=== PATIENT | female | born 1945 | race Caucasian/White ===

== ENCOUNTER 2019-02-17 09:27 | Inpatient (IN) | payer MEDICARE, BC ==
[2019-02-17 09:52] LABS: #Eosinphils 0.1 thou/uL (0.0-0.7); #Lymphocytes 1.4 thou/uL (1.20-3.40); #Neutrophils 10.5 thou/uL (1.40-6.50); %Basophils 0.1 % (0.0-1.0); %Eosinophils 0.6 % (0.0-10.0); %Monocytes 7.6 % (0.0-10.0); %Neutrophils 80.7 % (42.0-75.0); Mean Corpuscular HGB CONC 32.8 g/dL (32.0-36.0); Mean Corpuscular Hemoglobin 32.9 pg (27.0-31.0); Platelet Count 170 thou/uL (130-400); RBC Distribution Width 11.7 % (11.5-14.5); Red Blood Cell (RBC) Count 4.55 mill/uL (4.20-5.40)
[2019-02-17] MEDS ORDERED: Acetaminophen 650 MG Suppository ONE (09:57)
[2019-02-17 10:38] LABS: ALT (SGPT) 36 U/L (8-55); AST (SGOT) 38 U/L (5-34); Albumin 3.6 g/dL (3.4-4.8); Alkaline Phosphatase 66 U/L (40-110); Anion Gap 16 mmol/L (10-20); BUN (Urea Nitrogen) 18 mg/dL (9.8-20.1); Bilirubin, Total 0.6 mg/dL (0.2-1.2); Calc. Creatinine Clearance 0 mL/min (70-130); Calcium 9.4 mg/dL (7.8-10.44); Carbon Dioxide 25 mmol/L (23-31); Chloride 102 mmol/L (98-107); Estimated GFR-MDRD 75; Globulin 3.5 g/dL (2.4-3.5); Glucose 101 mg/dL (83-110); Potassium 4.4 mmol/L (3.5-5.1); Protein, Total 7.1 g/dL (6.0-8.3); Sodium 139 mmol/L (136-145)
--- NOTE | 2019-02-17 10:51 | RAD ---
Portable frontal chest radiograph: 02/17/2019 COMPARISON: 01/17/2016 HISTORY: Altered mental status, sepsis FINDINGS: Shallow inspiration limits detailed assessment. Hazy increased density noted in the right l chuy base which may represent volume loss or mild infiltrate. There is similar mild increased density in the left cardiophrenic angle. No lobar consolidation or alveolar edema. Postoperative clip s are seen in the right upper quadrant. IMPRESSION: Mild increased density in both lung bases may signify volume loss or mild infiltrate. No focal consolidation or alveolar edema.
[2019-02-17 11:03] LABS: Bacteria/HPF 4+ HPF (None Seen); Bilirubin Negative (Negative); Blood, Urine 1+ (Negative); Clarity Extra Turbid (Clear); Glucose, Urine (Dipstick) Normal (Negative); Leukocyte 500 Leu/uL (Negative); Nitrite 1+ (Negative); Protein, Urine (Dipstick) 20 mg/dL (Neg-Trace); Urobilinogen Normal mg/dL (Less than 2); WBC/HPF Greater than 50 HPF (0-3)
[2019-02-17] MEDS ORDERED: cefTRIAXone\\ROCEPHIN 1 GM VIAL ONE (11:55)
[2019-02-17 13:37] LABS: Lactic Acid 3.5 mmol/L (0.5-2.2)
[2019-02-17] MEDS ORDERED: Acetaminophen 325 MG TAB PO PRN (15:18)
[2019-02-17] MEDS ORDERED: Sodium Chloride 0.9% 1,000 ML IV SCH (15:18)
[2019-02-17] MEDS ORDERED: hydrALAZINE 20 MG/ML VIAL SLOW IVP PRN (18:23)
[2019-02-17] MEDS ORDERED: traMADol HCl 50 MG TAB PO PRN (18:23)
[2019-02-17] MEDS ORDERED: Lisinopril 10 MG TAB PO PRN (18:23)
[2019-02-17] MEDS ORDERED: Ondansetron ODT 4 MG TAB PO PRN (18:23)
[2019-02-17] MEDS ORDERED: Polyethylene Glycol OPTH DROP 15 ML BOT EA EYE PRN (18:23)
[2019-02-17] MEDS: Sodium Chloride 0.9% 1,000 ML IV SCH (19:00)
--- NOTE | 2019-02-17 19:32 | HP ---
PRIMARY CARE PROVIDER: Dr. Chris Bowers. CHIEF COMPLAINT: Altered mental status. HISTORY OF PRESENT ILLNESS: This is a 73-year-old female, who presents to [facility] Emergency Department from a local long term unit [facility] where patient is a current resident. group home staff noted patient with decreased alertness and altered mental status concerning the staff to notify EMS personnel. The patient with a previous history of altered mentation in the context of urinary tract infection as the patient has a neurogenic bladder. EMS evaluated the patient, who was noted to be tachycardiac with a fever of 101 degrees Fahrenheit. The patient does not have a chronic urinary catheter placed, but longterm staff states the patient is normally more alert and interactive. The patient with significant history of dementia as well as paraplegia and essentially bedbound after history of metastatic breast cancer and in addition to spinal cord cancer. The history is obtained after review of the electronic medical record in conjunction with discussions with the emergency room attending and review of pertinent electronic medical records in [facility]. The patient is unable to verbalize any coherent history. In the emergency room, the patient underwent general evaluation with urinalysis concerning for infectious process. The patient was also noted with lactic acidosis and elevated white blood cell count and heart rate concerning for sepsis. The patient received intravenous normal saline x2 liters in addition to Rocephin 1 g IV piggyback and Tylenol 650 mg. The patient was transferred to the medical floor for further evaluation. PAST MEDICAL HISTORY: 1. Metastatic breast cancer, status post left mastectomy. 2. Spinal cord cancer x2. 3. Hypothyroidism. 4. Bedbound status. 5. Hyperlipidemia. 6. Paraplegia. 7. Gastroesophageal reflux disease. 8. Recurrent urinary tract infections. PAST SURGICAL HISTORY: 1. Status post cholecystectomy. 2. Status post hysterectomy. 3. Status post lumbar disk repair in 2001 and 2007. 4. Status post left mastectomy. CURRENT MEDICATIONS: 1. Enteric-coated aspirin 81 mg p.o. daily. 2. Lipitor 40 mg p.o. daily. 3. Dulcolax 10 mg per rectum daily. 4. Calcium carbonate 500 mg p.o. daily. 5. Vitamin D3 of 1000 units p.o. daily. 6. Benadryl 25 mg p.o. q.6 hours p.r.n. 7. Famotidine 20 mg p.o. q.h.s. 8. Gabapentin 100 mg p.o. b.i.d. and 300 mg p.o. q.h.s. 9. Levothyroxine 88 mcg p.o. daily. 10. Lisinopril 10 mg p.o. daily. 11. Magnesium oxide 400 mg p.o. b.i.d. 12. [place]-3 fatty acids 2000 mg p.o. b.i.d. 13. Tramadol 50 mg p.o. b.i.d. p.r.n. ALLERGIES: NO KNOWN DRUG ALLERGIES. FAMILY HISTORY: Father with throat cancer. SOCIAL HISTORY: The patient resides at [facility] as a longterm resident. No current alcohol, tobacco, or illicit drug use. Nonambulatory status. Medical power of civil rights attorney is the patient's sister, Indira Mclean. REVIEW OF SYSTEMS: Unobtainable due to patient's altered mentation. PHYSICAL EXAMINATION: VITAL SIGNS: On evaluation in the emergency room; blood pressure 138/78, pulse 108, respiratory rate 14, temperature 101 degrees Fahrenheit, O2 saturation 98% on room air. GENERAL APPEARANCE: This is a 73-year-old female, ill appearing, minimally responsive, but nods to questions, in mild distress. HEENT: Pupils are equal, round, reactive to light and accommodation. Extraocular muscles are intact. No scleral icterus. No conjunctival injection. Nares patent. OP is clear. Oral mucosa dry. NECK: Supple. No cervical adenopathy. No thyromegaly. No carotid bruits. No JVD appreciated. Cervical spine with full active and passive range of motion. No meningeal signs noted. CHEST: Lungs are clear to auscultation bilaterally. CARDIOVASCULAR: S1 and S2 with tachycardia. ABDOMEN: Rounded, soft with mild tenderness to palpation in the suprapubic region. No palpable mass. No rebound or guarding appreciated. EXTREMITIES: Warm and dry with fair turgor. No clubbing, cyanosis, or asymmetric edema appreciated. Pulses palpable distally at the dorsalis pedis, posterior tibial, and popliteal arteries bilaterally. Capillary refill less than 2 seconds. NEUROLOGIC: Nonverbal. Nods to questions. Tracks with her eyes. Bedbound status. PERTINENT LABORATORY AND X-RAY FINDINGS: Basic metabolic profile within normal limits. Lactic acid level ranged between 3.1 to 3.5. LFTs within normal limits. CBC showed a white blood cell count of 13.0, hemoglobin 15, hematocrit 46, MCV 100, platelet count 170 with 81% neutrophils. Urinalysis showed positive nitrite and leukocyte esterase with 11 to 20 rbc's and greater than 50 to [id number] wbc's per high-power field, 4+ bacteria. Influenza A and B antigen dated 02/17/2019, negative. Portable chest x-ray dated 02/17/2019, showed bibasilar atelectasis. EKG dated 02/17/2019, by my interpretation shows sinus tachycardia with heart rates in the low 100s. Normal R-wave progression noted in the precordial leads. Left axis deviation noted. ASSESSMENT AND PLAN: 1. Sepsis secondary to urinary tract infection. Admit to the medical floor. Continue intravenous normal saline at 100 mL/h. Levaquin 750 mg IV q.24 hours. Await final urine culture results. 2. Acute metabolic encephalopathy secondary to #1. We will continue treatment as outlined in #1 and monitor clinical response. 3. Lactic acidosis secondary to #1. We will continue treatment as outlined previously. Serial blood pressure monitoring. Continue IV antibiotics. 4. Paraplegia. Continue turning protocol to avoid decubitus ulceration. Baseline status. 5. Prophylaxis. SCDs while in bed. Pepcid 20 mg p.o. b.i.d. 6. Code status. Do not attempt resuscitation. Confirmed with family and [id number] DNR. Surrogate medical decision maker is patient's sister. Job ID: [id number]
[2019-02-17] MEDS: Gabapentin 300 MG CAP PO SCH (20:33)
[2019-02-17] MEDS: Magnesium Oxide 400 MG TAB PO SCH (20:33)
[2019-02-17] MEDS: traMADol HCl 50 MG TAB PO SCH (20:34)
[2019-02-17] MEDS: Famotidine 20 MG TAB PO SCH (21:00)
[2019-02-17] MEDS ORDERED: cefTRIAXone\\ROCEPHIN 1 GM in Sodium Chloride 0.9% 100 ML IVPB SCH (23:10)
[2019-02-18] MEDS: Sodium Chloride 0.9% 1,000 ML IV SCH ×2 (05:36→14:23)
[2019-02-18] MEDS: Levothyroxine Sodium 88 MCG TAB PO SCH (05:36)
[2019-02-18 06:44] LABS: Anion Gap 11 mmol/L (10-20); BUN (Urea Nitrogen) 15 mg/dL (9.8-20.1); Calc. Creatinine Clearance 0 mL/min (70-130); Carbon Dioxide 22 mmol/L (23-31); Chloride 105 mmol/L (98-107); Estimated GFR-MDRD Greater than 90; Glucose 98 mg/dL (83-110); Potassium 4.1 mmol/L (3.5-5.1); Sodium 134 mmol/L (136-145)
[2019-02-18 06:46] LABS: Band 1 % (5-11); Hemoglobin 13.3 g/dL (12.0-16.0); Lymphocytes 10 % (21-51); MDiff Complete? YES; Mean Corpuscular HGB CONC 34.6 g/dL (32.0-36.0); Mean Corpuscular Hemoglobin 34.3 pg (27.0-31.0); Mean Corpuscular Volume 99.2 fL (78.0-98.0); Mean Platelet Volume 9.2 fL (7.4-10.4); Monocytes 5 % (0-10); Neutrophil 84 % (42-75); Platelet Count 80 thou/uL (130-400); Platelet Morphology Comment Appears Adequate; RBC Distribution Width 11.6 % (11.5-14.5); RBC Morphology Normal; Red Blood Cell (RBC) Count 3.87 mill/uL (4.20-5.40); White Blood Cell (WBC) Count 12.9 thou/uL (4.8-10.8)
[2019-02-18] MEDS ORDERED: Gabapentin 100 MG CAP PO SCH (07:30)
[2019-02-18] MEDS: Magnesium Oxide 400 MG TAB PO SCH ×2 (08:30→20:32)
[2019-02-18] MEDS: Famotidine 20 MG TAB PO SCH ×2 (08:30→20:31)
[2019-02-18] MEDS: Aspirin 81 mg Enteric Coated Tablet PO SCH (08:30)
[2019-02-18] MEDS: Calcium Carbonate 500 MG ChewTAB PO SCH (08:31)
[2019-02-18] MEDS: Atorvastatin Calcium 40 MG TAB PO SCH (08:31)
[2019-02-18] MEDS: traMADol HCl 50 MG TAB PO SCH ×2 (08:31→20:32)
[2019-02-18] MEDS: Simethicone Chewable 80 MG TAB PO SCH (08:32)
[2019-02-18] MEDS: Bisacodyl 10 MG SUPP PR SCH (08:34)
--- NOTE | 2019-02-18 13:27 | PDOC.HOSPP ---
- Subjective Encounter Date: 02/18/19 Encounter Time: 13:00 Subjective: Drowsy, Awake able.. - Objective Vital Signs & Weight: Vital Signs (12 hours) Temp Pulse Resp BP Pulse Ox 02/18/19 11:51 97.8 F 88 20 102/64 94 L 02/18/19 08:00 97 02/18/19 07:51 98.4 F 94 20 116/75 97 02/18/19 05:25 98.4 F 99 16 115/78 95 I&O: 02/17/19 02/18/19 02/19/19 06:59 06:59 06:59 Intake Total 1350 Output Total 475 Balance 875 Result Diagrams: 02/18/19 06:24 02/18/19 06:23 Hospitalist ROS - Medication Medications: Active Medications Generic Name Dose Route Start Last Admin Trade Name Freq PRN Reason Stop Dose Admin Aspirin 81 mg 02/18/19 09:00 02/18/19 08:30 Ecotrin PO 81 mg DAILY ROBERT Administration Atorvastatin Calcium 40 mg 02/18/19 09:00 02/18/19 08:31 Lipitor PO 40 mg DAILY ROBERT Administration Bisacodyl 10 mg 02/18/19 09:00 02/18/19 08:34 Dulcolax [place] 10 mg DAILY ROBERT Administration Calcium Carbonate 500 mg 02/18/19 09:00 02/18/19 08:31 Tums PO 500 mg DAILY ROBERT Administration Cholecalciferol 1,000 units 02/18/19 06:00 02/18/19 05:36 Vitamin D3 PO 1,000 units 0600 ROBERT Administration Famotidine 20 mg 02/17/19 21:00 02/18/19 08:30 Pepcid PO 20 mg BID ROBERT Administration Gabapentin 100 mg 02/18/19 07:30 02/18/19 08:30 Neurontin PO 100 mg BID-AC ROBERT Administration Gabapentin 300 mg 02/17/19 21:00 02/17/19 20:33 Neurontin PO 300 mg HS ROBERT Administration Sodium Chloride 1,000 mls @ 100 mls/hr 02/17/19 18:30 02/18/19 05:36 Normal Saline 0.9% IV 1,000 mls .Q10H ROBERT Administration Levofloxacin 750 mg/ Device 150 mls @ 100 mls/hr 02/17/19 20:00 02/17/19 20: 28 IVPB 150 mls Q24HR ROBERT Administration Levothyroxine Sodium 88 mcg 02/18/19 06:00 02/18/19 05:36 Synthroid PO 88 mcg 0600 ROBERT Administration Magnesium Oxide 400 mg 02/17/19 21:00 02/18/19 08:30 Magnesium Oxide PO 400 mg BID ROBERT Administration Simethicone 80 mg 02/18/19 09:00 02/18/19 08:32 Mylicon Chewable PO 80 mg DAILY ROBERT Administration Sodium Chloride 10 ml 02/17/19 21:00 02/18/19 08:33 Flush - Normal Saline IVF 10 ml Q12HR ROBERT Administration Tramadol HCl 50 mg 02/17/19 21:00 02/18/19 08:31 Ultram PO 50 mg BID ROBERT Administration - Exam Eye: anicteric sclera Neck: no JVD Heart: RRR Respiratory: CTAB Gastrointestinal: soft Extremities: no edema Neurological - other findings: +paraplegia.. Hosp A/P (1) Sepsis Code(s): A41.9 - SEPSIS, UNSPECIFIED ORGANISM Status: Acute (2) Lactic acidosis Code(s): E87.2 - ACIDOSIS Status: Acute (3) Lactic acidosis Code(s): E87.2 - ACIDOSIS Status: Acute (4) Altered mental status Code(s): R41.82 - ALTERED MENTAL STATUS, UNSPECIFIED Status: Acute (5) Altered mental status Code(s): R41.82 - ALTERED MENTAL STATUS, UNSPECIFIED Status: Acute (6) Breast cancer Status: Acute (7) Spinal stenosis of lumbar region Code(s): M48.06 - SPINAL STENOSIS, LUMBAR REGION * DO NOT USE * Status: Chronic (8) UTI (urinary tract infection) Status: Chronic Qualifiers: Urinary tract infection type: acute cystitis - Plan f/u BxC Continue antibiotics, f/u lactic acid. Hold neurontin.
[2019-02-18] MEDS: Ondansetron PF 4 MG/2 ML Vial IVP PRN (15:40)
[2019-02-18 16:12] VITALS: BMI 23.7
[2019-02-18] MEDS: Gabapentin 300 MG CAP PO SCH (20:32)
[2019-02-18] MEDS: Acetaminophen 500 MG TAB PO PRN (21:02)
[2019-02-19] MEDS: Sodium Chloride 0.9% 1,000 ML IV SCH ×3 (02:00→14:35)
[2019-02-19] MEDS: Levothyroxine Sodium 88 MCG TAB PO SCH (05:22)
[2019-02-19] MEDS: Ondansetron PF 4 MG/2 ML Vial IVP PRN (05:24)
[2019-02-19] MEDS: Famotidine 20 MG TAB PO SCH ×2 (08:19→21:03)
[2019-02-19] MEDS: Calcium Carbonate 500 MG ChewTAB PO SCH (08:19)
[2019-02-19] MEDS: traMADol HCl 50 MG TAB PO SCH (08:21)
[2019-02-19] MEDS: Aspirin 81 mg Enteric Coated Tablet PO SCH (08:22)
[2019-02-19] MEDS: Atorvastatin Calcium 40 MG TAB PO SCH (08:22)
[2019-02-19] MEDS: Simethicone Chewable 80 MG TAB PO SCH (08:23)
[2019-02-19] MEDS: Magnesium Oxide 400 MG TAB PO SCH ×2 (08:23→21:03)
[2019-02-19] MEDS: Aspirin Chewable 81 MG TAB PO SCH (08:26)
--- NOTE | 2019-02-19 12:20 | PDOC.HOSPP ---
- Subjective Encounter Date: 02/19/19 Encounter Time: 11:00 Subjective: Somnolent, awake able.. - Objective Vital Signs & Weight: Vital Signs (12 hours) Temp Pulse Resp BP Pulse Ox 02/19/19 07:40 97.5 F L 78 16 138/83 96 Weight Weight 134 lb 1.6 oz I&O: 02/18/19 02/19/19 02/20/19 06:59 06:59 06:59 Intake Total 1350 1150 Output Total 093 700 Balance 875 450 Result Diagrams: 02/18/19 06:24 02/18/19 06:23 Hospitalist ROS - Medication Medications: Active Medications Generic Name Dose Route Start Last Admin Trade Name Freq PRN Reason Stop Dose Admin Acetaminophen 1,000 mg 02/17/19 18:23 02/18/19 21:02 Tylenol PO 1,000 mg Q6H PRN Administration Mild Pain (1-3) Aspirin 81 mg 02/19/19 09:00 02/19/19 08:26 Aspirin Chewable PO 81 mg DAILY ROBERT Administration Atorvastatin Calcium 40 mg 02/18/19 09:00 02/19/19 08:22 Lipitor PO 40 mg DAILY ROBERT Administration Bisacodyl 10 mg 02/18/19 09:00 02/18/19 08:34 Dulcolax [place] 10 mg DAILY ROBERT Administration Calcium Carbonate 500 mg 02/18/19 09:00 02/19/19 08:19 Tums PO 500 mg DAILY ROBERT Administration Cholecalciferol 1,000 units 02/18/19 06:00 02/19/19 05:22 Vitamin D3 PO 1,000 units 0600 ROBERT Administration Famotidine 20 mg 02/17/19 21:00 02/19/19 08:19 Pepcid PO 20 mg BID ROBERT Administration Gabapentin 300 mg 02/17/19 21:00 02/18/19 20:32 Neurontin PO 300 mg HS ROBERT Administration Sodium Chloride 1,000 mls @ 100 mls/hr 02/17/19 18:30 02/19/19 11:59 Normal Saline 0.9% IV Not Given .Q10H ROBERT Levofloxacin 750 mg/ Device 150 mls @ 100 mls/hr 02/17/19 20:00 02/18/19 20: 30 IVPB 150 mls Q24HR ROBERT Administration Levothyroxine Sodium 88 mcg 02/18/19 06:00 02/19/19 05:22 Synthroid PO 88 mcg 0600 ROBERT Administration Magnesium Oxide 400 mg 02/17/19 21:00 02/19/19 08:23 Magnesium Oxide PO 400 mg BID ROBERT Administration Ondansetron HCl 4 mg 02/17/19 18:23 02/19/19 05:24 Zofran IVP 4 mg Q6H PRN Administration Nausea/Vomiting Simethicone 80 mg 02/18/19 09:00 02/19/19 08:23 Mylicon Chewable PO 80 mg DAILY ROBERT Administration Sodium Chloride 10 ml 02/17/19 21:00 02/19/19 09:52 Flush - Normal Saline IVF Not Given Q12HR ROBERT Tramadol HCl 50 mg 02/17/19 21:00 02/19/19 08:21 Ultram PO 50 mg BID ROBERT Administration - Exam General Appearance: NAD Neck: no JVD Heart: RRR Respiratory: CTAB Gastrointestinal: soft Extremities: no edema Neurological - other findings: +Paraplegia.. Psychiatric: somnolent Hosp A/P (1) Sepsis Code(s): A41.9 - SEPSIS, UNSPECIFIED ORGANISM Status: Acute (2) Lactic acidosis Code(s): E87.2 - ACIDOSIS Status: Resolved (3) Lactic acidosis Code(s): E87.2 - ACIDOSIS Status: Resolved (4) Altered mental status Code(s): R41.82 - ALTERED MENTAL STATUS, UNSPECIFIED Status: Acute (5) Altered mental status Code(s): R41.82 - ALTERED MENTAL STATUS, UNSPECIFIED Status: Acute (6) Breast cancer Status: Acute (7) Spinal stenosis of lumbar region Code(s): M48.06 - SPINAL STENOSIS, LUMBAR REGION * DO NOT USE * Status: Chronic (8) UTI (urinary tract infection) Status: Chronic Qualifiers: Urinary tract infection type: acute cystitis - Plan Urine culture grows K.Pneumoniae Continue antibiotics, Try to hold toradol if feasable in view of somnolence.....
[2019-02-19] MEDS: Bisacodyl 10 MG SUPP PR SCH (17:08)
[2019-02-19] MEDS: Gabapentin 300 MG CAP PO SCH (21:03)
[2019-02-19] MEDS: Acetaminophen 500 MG TAB PO PRN (21:03)
[2019-02-20] MEDS: Ondansetron PF 4 MG/2 ML Vial IVP PRN (01:13)
[2019-02-20] MEDS: Sodium Chloride 0.9% 1,000 ML IV SCH ×2 (01:14→13:21)
[2019-02-20] MEDS ORDERED: Sodium Chloride 0.65% Nasal 44 ML BOT EA NARE PRN (01:23)
[2019-02-20] MEDS: Levothyroxine Sodium 88 MCG TAB PO SCH (05:01)
[2019-02-20] MEDS: Calcium Carbonate 500 MG ChewTAB PO SCH (09:52)
[2019-02-20] MEDS: Famotidine 20 MG TAB PO SCH ×2 (09:52→19:47)
[2019-02-20] MEDS: Aspirin Chewable 81 MG TAB PO SCH (09:53)
[2019-02-20] MEDS: Simethicone Chewable 80 MG TAB PO SCH (09:53)
[2019-02-20] MEDS: Atorvastatin Calcium 40 MG TAB PO SCH (09:53)
[2019-02-20] MEDS: Bisacodyl 10 MG SUPP PR SCH (10:04)
--- NOTE | 2019-02-20 10:52 | PDOC.HOSPP ---
- Subjective Encounter Date: 02/20/19 Encounter Time: 10:30 Subjective: NO specific complaint.. Much more alert today. - Objective Vital Signs & Weight: Vital Signs (12 hours) Temp Pulse Resp BP Pulse Ox 02/20/19 08:00 97.7 F 84 20 139/80 98 Weight Weight 134 lb 1.6 oz I&O: 02/19/19 02/20/19 02/21/19 06:59 06:59 06:59 Intake Total 1150 1300 Output Total 700 2200 Balance 450 -900 Result Diagrams: 02/18/19 06:24 02/18/19 06:23 Hospitalist ROS - Medication Medications: Active Medications Generic Name Dose Route Start Last Admin Trade Name Freq PRN Reason Stop Dose Admin Acetaminophen 1,000 mg 02/17/19 18:23 02/19/19 21:03 Tylenol PO 1,000 mg Q6H PRN Administration Mild Pain (1-3) Aspirin 81 mg 02/19/19 09:00 02/20/19 09:53 Aspirin Chewable PO 81 mg DAILY ROBERT Administration Atorvastatin Calcium 40 mg 02/18/19 09:00 02/20/19 09:53 Lipitor PO 40 mg DAILY ROBERT Administration Bisacodyl 10 mg 02/18/19 09:00 02/20/19 10:04 Dulcolax [place] Not Given DAILY ROBERT Calcium Carbonate 500 mg 02/18/19 09:00 02/20/19 09:52 Tums PO 500 mg DAILY ROBERT Administration Cholecalciferol 1,000 units 02/18/19 06:00 02/20/19 05:01 Vitamin D3 PO 1,000 units 0600 ROBERT Administration Famotidine 20 mg 02/17/19 21:00 02/20/19 09:52 Pepcid PO 20 mg BID ROBERT Administration Gabapentin 300 mg 02/17/19 21:00 02/19/19 21:03 Neurontin PO 300 mg HS ROBERT Administration Sodium Chloride 1,000 mls @ 100 mls/hr 02/17/19 18:30 02/20/19 01:14 Normal Saline 0.9% IV 1,000 mls .Q10H ROBERT Administration Levofloxacin 750 mg/ Device 150 mls @ 100 mls/hr 02/17/19 20:00 02/19/19 21: 00 IVPB 150 mls Q24HR ROBERT Administration Levothyroxine Sodium 88 mcg 02/18/19 06:00 02/20/19 05:01 Synthroid PO 88 mcg 0600 ROBERT Administration Magnesium Oxide 400 mg 02/17/19 21:00 02/19/19 21:03 Magnesium Oxide PO 400 mg BID ROBERT Administration Ondansetron HCl 4 mg 02/17/19 18:23 02/20/19 01:13 Zofran IVP 4 mg Q6H PRN Administration Nausea/Vomiting Simethicone 80 mg 02/18/19 09:00 02/20/19 09:53 Mylicon Chewable PO 80 mg DAILY ROBERT Administration Sodium Chloride 10 ml 02/17/19 21:00 02/19/19 21:04 Flush - Normal Saline IVF Not Given Q12HR ROBERT Sodium Chloride 0 ml 02/20/19 01:23 02/20/19 01:28 P[place]iss Nasal Sacul 0.65% EA NARE 1 spr PRN PRN Administration Nasal Dryness - Exam Neck: no JVD Heart: RRR Respiratory: CTAB Gastrointestinal: soft Extremities: no edema Neurological - other findings: +paraplegia.. Hosp A/P (1) Sepsis Code(s): A41.9 - SEPSIS, UNSPECIFIED ORGANISM Status: Acute (2) Lactic acidosis Code(s): E87.2 - ACIDOSIS Status: Resolved (3) Lactic acidosis Code(s): E87.2 - ACIDOSIS Status: Resolved (4) Altered mental status Code(s): R41.82 - ALTERED MENTAL STATUS, UNSPECIFIED Status: Acute Plan: much improved.. (5) Breast cancer Status: Acute (6) Spinal stenosis of lumbar region Code(s): M48.06 - SPINAL STENOSIS, LUMBAR REGION * DO NOT USE * Status: Chronic (7) UTI (urinary tract infection) Status: Chronic Qualifiers: Urinary tract infection type: acute cystitis - Plan Urine culture grows K.Pneumoniae Continue antibiotics, Try to hold tramadol if feasable in view of somnolence.....
[2019-02-20] MEDS: Magnesium Oxide 400 MG TAB PO SCH ×2 (10:57→19:47)
[2019-02-20] MEDS: Gabapentin 300 MG CAP PO SCH (19:47)
[2019-02-21] MEDS: Sodium Chloride 0.9% 1,000 ML IV SCH ×2 (00:40→10:35)
[2019-02-21] MEDS: Levothyroxine Sodium 88 MCG TAB PO SCH (06:10)
[2019-02-21] MEDS: Simethicone Chewable 80 MG TAB PO SCH (10:32)
[2019-02-21] MEDS: Famotidine 20 MG TAB PO SCH (10:33)
[2019-02-21] MEDS: Magnesium Oxide 400 MG TAB PO SCH (10:33)
[2019-02-21] MEDS: Atorvastatin Calcium 40 MG TAB PO SCH (10:33)
[2019-02-21] MEDS: Aspirin Chewable 81 MG TAB PO SCH (10:33)
[2019-02-21] MEDS: Calcium Carbonate 500 MG ChewTAB PO SCH (10:33)
[2019-02-21] MEDS: Bisacodyl 10 MG SUPP PR SCH (10:34)
[2019-02-21 11:52] VITALS: BP 136/81; TEMP 97.7
--- NOTE | 2019-02-22 10:35 | DIS ---
DATE OF ADMISSION: 02/17/2019 DATE OF DISCHARGE: 02/21/2019 Transfer of care. PRIMARY CARE PROVIDER: Chris Bowers MD DISPOSITION: Discharged back to [facility]. FINAL DIAGNOSES: 1. Sepsis syndrome, secondary to urinary tract infection with Klebsiella pneumoniae. 2. Metastatic breast cancer. 3. Paraplegia, secondary to metastases to the spine. 4. Neurogenic bladder. 5. Metabolic encephalopathy, resolved. 6. Hypertension. 7. Hypothyroidism. DISCHARGE MEDICATIONS: 1. Levaquin 500 mg p.o. daily for 10 more days. 2. Tylenol 650 mg three times a day p.r.n. 3. Aspirin 81 mg a day. 4. Lipitor 40 mg a day. 5. Pepcid 20 mg p.o. at bedtime. 6. Gabapentin 300 mg p.o. at bedtime, 100 mg twice a day. 7. Levothyroxine 88 mcg a day. 8. Zestril 10 mg a day. 9. Tramadol 50 mg p.o. q.8 hours p.r.n. pain. ALLERGIES: NO KNOWN DRUG ALLERGIES. CODE STATUS: Do not attempt resuscitation. DIET: Regular. HOSPITAL COURSE: The patient admitted with fever, encephalopathy, found to have elevated white count, foul urine, urine grew Klebsiella pneumoniae, pansensitive. She was treated initially with Levaquin. This has been transitioned to oral. She is being discharged on 10 more days of Levaquin due to her neurogenic bladder. She does not have a catheter in it. FOLLOWUP: Followup will be in 3 days with primary care provider. No procedures or consultations during this hospital stay. Job ID: [id number]
== END 2019-02-21 15:25 | DRG 871 ==
LOC: ERS 09:27 → T4-B 14:58
PROVIDERS: ADMIT Family Medicine; ATTEND Family Medicine
DX: A41.89 Other specified sepsis (principal); G93.41 Metabolic encephalopathy; G82.20 Paraplegia, unspecified; C79.51 Secondary malignant neoplasm of bone; E87.2 Acidosis; N30.00 Acute cystitis without hematuria; Z66 Do not resuscitate; B96.1 Klebsiella pneumoniae [K. pneumoniae] as the cause of diseases classified elsewhere; C50.919 Malignant neoplasm of unspecified site of unspecified female breast; N31.9 Neuromuscular dysfunction of bladder, unspecified; I10 Essential (primary) hypertension; E03.9 Hypothyroidism, unspecified; F03.90 Unspecified dementia, unspecified severity, without behavioral disturbance, psychotic disturbance, mood disturbance, and anxiety; M48.061 Spinal stenosis, lumbar region without neurogenic claudication; E83.42 Hypomagnesemia; E78.5 Hyperlipidemia, unspecified; F32.9 Major depressive disorder, single episode, unspecified; K21.9 Gastro-esophageal reflux disease without esophagitis; Z90.49 Acquired absence of other specified parts of digestive tract; Z90.710 Acquired absence of both cervix and uterus; Z74.01 Bed confinement status
CPT/HCPCS: 36415; 51701; 71045; 80048; 80053; 81003; 81015; 83605; 85007; 85025; 85027; 87040; 87077; 87086; 87186; 87804; 93005; 96361; 96365; A4353; J0696; J1956; J2405

== ENCOUNTER 2022-04-10 00:07 | Emergency (ER) | payer MEDICARE | END 2022-04-10 00:36 | LOC: ERS 00:07 | DX: Z45.2 Encounter for adjustment and management of vascular access device (principal) | CPT/HCPCS: 99283 ==